=== PATIENT | female | born 1985 | race Caucasian/White ===

== ENCOUNTER 2020-04-10 19:31 | Emergency (ER) | payer OTHER ==
[~2020-04-10] VITALS: Ht 160 cm; Wt 59.0 kg
[2020-04-10 20:26] LABS: ABSOLUTE NEUTROPHILS 8.5 thou/uL (1.4-8.2); BASOPHILS 0.6 % (0.0-2.0); EOSINOPHILS 0.2 % (0.0-3.0); HEMATOCRIT 45.1 % (37.0-47.0); HEMOGLOBIN 15.6 gm/dL (12.0-15.0); LYMPHOCYTES 12.2 % (24.0-44.0); MCH 36.6 pg (26.0-34.0); MCHC 34.5 g/dL (28.0-37.0); MONOCYTES 10.7 % (1.0-8.0); PLATELET COUNT 222 thou/uL (150-400); POLYS 76.3 % (36.0-66.0); RBC 4.26 mil/uL (4.20-5.00); WBC 11.2 thou/uL (4.0-11.0)
[2020-04-10 20:33] LABS: POTASSIUM 3.1 mmol/L (3.5-5.1)
[2020-04-10 20:37] LABS: CALCIUM 10.1 mg/dL (8.5-10.1)
[2020-04-10] MEDS ORDERED: POTASSIUM20 PO (21:22)
[2020-04-10] MEDS ORDERED: MAG-OXIDE400 MG PO (21:24)
[2020-04-10 21:44] VITALS: BP 119/66
== END 2020-04-10 21:53 | disposition home or self-care (01) ==
LOC: ER 19:31
PROVIDERS: Nurse Practitioner
DX: F41.0 Panic disorder [episodic paroxysmal anxiety] (principal); E87.6 Hypokalemia; F17.210 Nicotine dependence, cigarettes, uncomplicated

== ENCOUNTER 2020-12-03 00:20 | Emergency (ER) | payer OTHER ==
[~2020-12-03] VITALS: Ht 160 cm; Wt 63.5 kg
[~2020-12-03 00:20] MED LIST: MAG-OXIDE400 MG PO; POTASSIUM20 PO
[2020-12-03] MEDS ORDERED: CELEXA 20 MG TA20 MG PO (00:27)
[2020-12-03] MEDS ORDERED: INDERAL LA120 M1 PO (00:28)
[2020-12-03] MEDS ORDERED: HYDROXYZINE HCL50 MG PO (00:28)
[2020-12-03 02:08] LABS: ABSOLUTE NEUTROPHILS 5.3 thou/uL (1.4-8.2); BASOPHILS 0.5 % (0.0-2.0); EOSINOPHILS 3.3 % (0.0-3.0); HEMATOCRIT 42.4 % (37.0-47.0); HEMOGLOBIN 14.4 gm/dL (12.0-15.0); MCH 34.7 pg (26.0-34.0); MCV 102.3 fL (80.0-100.0); MONOCYTES 6.7 % (1.0-8.0); PLATELET COUNT 213 thou/uL (150-400); POLYS 63.5 % (36.0-66.0); RBC 4.15 mil/uL (4.20-5.00); RDW 17.8 % (10.5-14.5); WBC 8.4 thou/uL (4.0-11.0)
[2020-12-03 02:16] LABS: URINE BILIRUBIN NEGATIVE (Negative); URINE BLOOD NEGATIVE (Negative); URINE CLARITY CLEAR; URINE COLOR YELLOW; URINE GLUCOSE-RANDOM* NEGATIVE (Negative); URINE KETONES NEGATIVE (Negative); URINE LEUKOCYTES-REFLEX TRACE (Negative); URINE NITRITE-REFLEX NEGATIVE (Negative); URINE PROTEIN (DIPSTICK) NEGATIVE (Negative); URINE UROBILINOGEN 0.2 E.U./dl (0.2-1.0)
[2020-12-03 02:17] LABS: ANION GAP 10 mmol/L (7-16); BUN 5 mg/dL (7-18); CALCIUM 8.1 mg/dL (8.5-10.1); CHLORIDE 109 mmol/L (98-107); CO2 28 mmol/L (21-32); CREATININE 0.7 mg/dL (0.6-1.0); GLUCOSE 103 mg/dL (74-106); POTASSIUM 3.1 mmol/L (3.5-5.1); SODIUM 147 mmol/L (136-145)
[2020-12-03 02:24] LABS: SALICYLATE < 2.8 mg/dL (2.8-20.0); SGOT 36 U/L (15-37); SGPT 31 U/L (14-59); TOTAL BILIRUBIN 0.2 mg/dL (0.2-1.0); TOTAL PROTEIN 6.7 g/dL (6.4-8.2)
[2020-12-03 02:33] LABS: AMP/METHAMP Negative (Negative); BARBITURATES Negative (Negative); BENZODIAZEPINES Negative (Negative); COCAINE Negative (Negative); METHADONE Negative (Negative); OPIATES Negative (Negative); PCP Negative (Negative)
[2020-12-03 05:47] VITALS: BP 127/84
--- NOTE | 2020-12-04 09:27 | EKG ---
[address] [address] ELECTROCARDIOGRAM REPORT Name: CHEN MCCORMACK Room #: DEP Mirlande#: [id number] Admission: 12/03/20 Attend Phys: Discharge: 12/03/20 Date of : 89 Report #: [id number] [facility] ED Test Date: 2020-12-03 Test Time: 01:08:03 Pat Name: CHEN MCCORMACK Department: Room: Gender: F Cmo: : 1985 Requested By: Thor Reyes Order Number: [id number] MD: Joni Dale Measurements Intervals [place] Rate: 87 P: 55 DE: 130 QRS: 66 QRSD: 75 T: 55 QT: 416 QTc: 501 Interpretive Statements Sinus rhythm Prolonged QT interval No previous ECG available for comparison Electronically Signed On 12-04-2020 9:27:25 CDT by Joni Dale [email or web address] <ELECTRONICALLY SIGNED> By: Joni Dale MD, [facility] 12/04/20 0927 [id number] Joni Dale MD, FACC /EPI
== END 2020-12-03 06:03 | disposition home or self-care (01) ==
LOC: ER 00:20
PROVIDERS: Emergency Medicine
DX: F10.129 Alcohol abuse with intoxication, unspecified (principal); R41.82 Altered mental status, unspecified; F41.9 Anxiety disorder, unspecified; F17.210 Nicotine dependence, cigarettes, uncomplicated; Z90.89 Acquired absence of other organs; Z79.899 Other long term (current) drug therapy